=== PATIENT | female | born 1990 | race Two or more races ===

== ENCOUNTER 2019-10-03 12:38 | Outpatient (CLI) | payer OTHER | END 2019-10-03 13:27 | disposition home or self-care (01) | LOC: NST 12:38 | PROVIDERS: ATTEND Obstetrics & Gynecology Maternal & Fetal Medicine | DX: Z34.83 Encounter for supervision of other normal pregnancy, third trimester (principal) ==

== ENCOUNTER 2019-10-08 10:09 | Outpatient (CLI) | payer OTHER | END 2019-10-08 10:54 | disposition home or self-care (01) | LOC: NST 10:09 | PROVIDERS: ATTEND Obstetrics & Gynecology Maternal & Fetal Medicine | DX: Z34.83 Encounter for supervision of other normal pregnancy, third trimester (principal) ==

== ENCOUNTER 2019-10-09 09:22 | Inpatient (IN) | payer OTHER ==
[~2019-10-09] VITALS: Ht 157.5 cm; Wt 76.2 kg
== END 2019-10-11 12:35 | DRG 807 ==
LOC: LDR 09:22 → OB/GYN 13:05
PROVIDERS: ADMIT Obstetrics & Gynecology; ATTEND Obstetrics & Gynecology
PROC: 10E0XZZ Delivery of Products of Conception, External Approach (ICD-10-PCS; principal; 2019-10-09)
PROC: 0HQ9XZZ Repair Perineum Skin, External Approach (ICD-10-PCS; 2019-10-09)
PROC: 4A0HXFZ Measurement of Products of Conception, Cardiac Rhythm, External Approach (ICD-10-PCS; 2019-10-09)
DX: O70.0 First degree perineal laceration during delivery (principal); Z37.0 Single live birth; Z3A.39 39 weeks gestation of pregnancy

== ENCOUNTER 2020-11-20 15:30 | Inpatient (IN) | payer OTHER ==
[~2020-11-20] VITALS: Ht 157.5 cm; Wt 68.9 kg
[2020-12-06] MEDS ORDERED: PRENATE ELITE1 EAC2 PO (03:21)
== END 2020-12-08 10:45 | disposition home or self-care (01) | DRG 807 ==
LOC: OB/GYN 12-03 15:30 → LDR 12-06 02:42 → OB/GYN 12-06 04:51
PROVIDERS: ADMIT Obstetrics & Gynecology; ATTEND Obstetrics & Gynecology
PROC: 10E0XZZ Delivery of Products of Conception, External Approach (ICD-10-PCS; principal; 2020-12-06)
PROC: 4A1HXFZ Monitoring of Products of Conception, Cardiac Rhythm, External Approach (ICD-10-PCS; 2020-12-06)
DX: O80 Encounter for full-term uncomplicated delivery (principal); Z37.0 Single live birth; Z3A.40 40 weeks gestation of pregnancy; Z20.822 Contact with and (suspected) exposure to COVID-19

== ENCOUNTER 2020-12-01 12:47 | Outpatient (CLI) | payer OTHER | END 2020-12-01 13:29 | disposition home or self-care (01) | LOC: NST 12:47 | PROVIDERS: ATTEND Obstetrics & Gynecology | DX: Z34.83 Encounter for supervision of other normal pregnancy, third trimester (principal) ==